=== PATIENT | male | born 1985 | race African-American/Black ===

== ENCOUNTER 2016-11-21 08:47 | Emergency (ER) | payer OTHER ==
[~2016-11-21] VITALS: Ht 185.4 cm; Wt 106.6 kg
[2016-11-21 08:48] VITALS: BP 128/83
[2016-11-21] MEDS ORDERED: NORCO 5-325 TA1 EACH PO (09:02)
[2016-11-21] MEDS ORDERED: VALIUM2 MG PO (09:02)
== END 2016-11-21 09:27 | disposition home or self-care (01) ==
LOC: ER 08:47
DX: M54.5 Low back pain (principal); G89.29 Other chronic pain; J45.909 Unspecified asthma, uncomplicated; Z88.0 Allergy status to penicillin; Z88.8 Allergy status to other drugs, medicaments and biological substances